=== PATIENT | female | born 1935 | race Caucasian/White ===

== ENCOUNTER → 2016-08-25 | Outpatient (CLI) | payer BC, OTHER ==
[~2016-08-25] MED LIST: CHOL1TAB2; CLON0.5T3 PO; METO-551 PO; METO25TA56 PO; MULT-190 PO; NRV/5 PO; PRLSR20 PO; RIVA1TAB4 PO; SIMV-151
[2016-08-25 13:14] LABS: ALT/SGPT 21 U/L (12-78); AST/SGOT 14 U/L (15-37); BLOOD UREA NITROGEN 12 mg/dl (7-18); CARBON DIOXIDE 29 mmol/L (21-32); CHLORIDE 102 mmol/L (98-107); CHOLESTEROL 155 mg/dl (0-200); CREATININE 0.91 mg/dl (0.60-1.20); GLUCOSE 84 mg/dl (70-99); POTASSIUM 4.2 mmol/L (3.5-5.1); SODIUM 139 mmol/L (136-145); TRIGLYCERIDES 167 mg/dl (0-150); VERY LOW DENSITY LIPOPROT CALC 33 mg/dl
[2016-08-25 13:17] LABS: ALB/GLOB RATIO 1.1 (0.9-2); ALKALINE PHOSPHATASE 71 U/L (45-117); CHOLESTEROL/HDL RATIO 2.8; HDL CHOLESTEROL 56 mg/dl; LDL CHOLESTEROL CALCULATED 66 mg/dl
[2016-08-25 13:21] LABS: CALCIUM 9.4 mg/dl (8.5-10.1)
== END | disposition home or self-care (01) ==
LOC: C.LABPVFM 11:06
PROVIDERS: ATTEND Family Medicine
DX: E78.5 Hyperlipidemia, unspecified (principal)

== ENCOUNTER 2022-08-05 04:32 | Inpatient (IN) ==
[2022-08-05 05:00] LABS: Basophils # (auto) 0.07 K/uL (0-0.2); Basophils % (auto) 1.4 %; Eosinophils # (auto) 0.08 K/uL (0-0.50); Eosinophils % (auto) 1.6 %; Hematocrit (blood only) 37.2 % (37.0-47.0); Hemoglobin 11.3 g/dl (12.0-16.0); Lymphocytes # (auto) 1.95 K/uL (1.2-3.4); Lymphocytes % (auto) 39.4 %; Mean Corpuscular Hemoglobin 26.4 pg (25.0-34.0); Mean Corpuscular Hgb Conc 30.4 g/dL (32.0-36.0); Mean Corpuscular Volume 86.9 fL (80.0-100.0); Mean Platelet Volume 10.3 fL (9.4-12.4); Monocytes # (auto) 0.55 K/uL (0.11-0.59); Monocytes % (auto) 11.1 %; Neutrophils % (auto) 46.5 %; Platelet Count 249 K/uL (130-400); RDW Coefficient of Variation 14.3 % (11.5-14.5); RDW Standard Deviation 45.5 fL (36.4-46.3); Red Blood Count 4.28 M/uL (4.20-5.40); White Blood Count 4.95 K/ul (4.8-10.8)
[2022-08-05 05:14] LABS: Albumin Globulin Ratio 1.2 (0.9-2); Albumin Level 4.1 gm/dl (3.4-5.0); BUN Creatinine Ratio 17.6 (10-20); Bilirubin,Total 0.7 mg/dl (0.2-1.0); Creatinine Clr Calc Pharmacy 56.9 ml/min; Est GFR (African American) 83.2 ml/min; Est GFR (Non-African American) 71.8 ml/min; Globulin 3.3 gm/dl (2.5-4.0); Total Protein 7.4 gm/dl (6.0-8.3)
[2022-08-05 05:26] LABS: INR 1.3 (0.9-1.1); Partial Thromboplastin Ratio 1.1; Partial Thromboplastin Time 32.2 Seconds (21.0-31.0); Prothrombin Time 14.5 Seconds (9.0-12.0)
[2022-08-05] MEDS ORDERED: FUROSEMIDE 40 MG/4 ML VIAL IV ONE ×2 (05:31→05:36)
--- NOTE | 2022-08-05 05:41 | Emergency Department Note ---
History of Present Illness General Chief complaint: Chest Pain Time Seen by Provider: 08/05/22 05:31 History of Present Illness Maximum Pain Intensity: 2 87-year-old female presents emergency department via EMS reportedly called EMS for chest pain that was substernal in nature with shortness of breath dyspnea on exertion. Patient has been experiencing this for the past few days. Patient was started few days ago on Lasix by her primary care physician. Patient has a history of A-fib she is currently on Xarelto. Patient states that she was having chest pressure that was nonradiating no associated nausea vomiting diaphoresis. There are no other mitigating or alleviating factors Home Medications Medication Instructions Recorded Confirmed Type cholecalciferol (vitamin D3) 25 1,000 units PO QAM 01/31/19 08/04/22 History mcg (1,000 unit) capsule potassium 99 mg tablet mg PO DAILY 05/29/19 08/04/22 History vitamins A,C,E-edno-updzyc 4,296 2 cap PO QAM 02/26/20 08/04/22 History mcg-226 mg-90 mg capsule (PreserVision AREDS) hydrochlorothiazide 25 mg tablet 25 mg PO QAM #90 tabs 12/24/21 08/04/22 Rx omeprazole 20 mg capsule,delayed 20 mg PO QAM #90 caps 12/24/21 08/04/22 Rx release simvastatin 20 mg tablet 20 mg PO QPM #90 tabs 01/05/22 08/04/22 Rx amlodipine 5 mg tablet 5 mg PO DAILY #90 tabs 02/13/22 08/04/22 Rx rivaroxaban 20 mg tablet (Xarelto) 20 mg PO QPM #90 tabs 03/31/22 08/04/22 Rx metoprolol tartrate 100 mg tablet 100 mg PO BID #180 tabs 05/06/22 08/04/22 Rx furosemide 20 mg tablet 20 mg PO DAILY #20 tabs 08/04/22 08/04/22 Rx Allergies Allergy/AdvReac Type Severity Reaction Status Date / Time codeine AdvReac Unknown STOMACH Verified 08/04/22 12:47 CRAMPS haloperidol AdvReac Unknown SEVERE Verified 08/04/22 12:47 LETHARGY Past Med/Surg History Medical History (Updated 08/05/22 @ 05:41 by Aj Peterson DO) Blepharospasm Head injury due to trauma 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) Syncope and collapse Tic disorder Surgical History H/O knee surgery History of reduction of open fracture Status post laser cataract surgery of both eyes Family History Daughter Breast cancer Denies family history of Ovarian cancer Prostate cancer Myocardial infarction Colorectal cancer Social History Smoking Status: Never smoker Second Hand Exposure: No; Do You Dip or Chew Tobacco: No; Hx Alcohol Use: Yes Alcohol type: wine Hx Substance Use: No Preferred Language: Cymro Communication Ability: Effective Visual Impairment: No Limitations Hearing Ability: Normal marital status: / Current Living Situation: Alone current occupational status: retired Feels Safe at Home: Yes Diet: regular caffeine: Yes (coffee ) Dental Care, Regularly: No Physical Activity Frequency: 1-2 Times per Week Seatbelt Use: always Sunscreen Use: Yes Review of Systems A total of 10 systems reviewed and were otherwise negative Cardiovascular: + chest pain and + dyspnea on exertion Physical Exam Vital Signs Vital Signs - 24 hr 08/05/22 04:37 08/05/22 04:46 08/05/22 05:51 Temperature 36.8 C Temperature Source Oral Pulse Rate 72 71 70 Respiratory Rate 16 12 Respiratory Effort / Characteristics Non-Labored Spontaneous Respiratory Depth Normal Respiratory Pattern Regular Blood Pressure 184/121 H Blood Pressure Mean 142 Pulse Oximetry 94 91 Oxygen Delivery Method Room Air Room Air Sepsis Recent Fever Within 48 Hours No Sepsis New/Unexplained Change in Mental Status No Sepsis Action Taken by Nursing No Action Required 08/05/22 05:01 08/05/22 05:30 Temperature Temperature Source Pulse Rate 67 70 Respiratory Rate 20 20 Respiratory Effort / Characteristics Respiratory Depth Respiratory Pattern Blood Pressure 178/90 H 188/88 H Blood Pressure Mean 119 121 Pulse Oximetry 91 96 Oxygen Delivery Method Sepsis Recent Fever Within 48 Hours Sepsis New/Unexplained Change in Mental Status Sepsis Action Taken by Nursing GENERAL: Patient is awake alert in no acute distress patient is resting comfortably and showing no signs of anxiety EYES: The conjunctivae are clear. The pupils are round and reactive. EARS, NOSE, MOUTH AND THROAT: The nose is without any evidence of any deformity. Mucous membranes are moist. Tongue is midline. NECK: The neck is nontender and supple. RESPIRATORY: Normal respiratory effort is noted there is no evidence of wheezing rhonchi or rales CARDIOVASCULAR: irregularly irregular rhythm noted there no murmurs rubs or gallops normal S1 normal S2. GASTROINTESTINAL: The abdomen is soft. Abdomen is nontender. BACK: No midline tenderness or or step-off noted range of motion in flexion e xtension as well as rotation no signs of muscle spasm noted MUSCULOSKELETAL/EXTREMITIES: There is no evidence of gross deformity full range of motion is noted in the hips and shoulders. SKIN: There is no obvious evidence of any rash. There are no petechiae, pallor or cyanosis noted. NEUROLOGIC: Patient is awake alert and oriented x3 strength is symmetric Course Reevaluation(s) Reevaluation #1: Patient was started on IV Lasix, aspirin, case was discussed with the [facility] for admission Time: 06:17 Consultations Consultation #1: Case discussed with the [facility] for admission Time: 06:17 Administered Medications Discontinued Medications Aspirin (Aspirin Chew 324 Mg) 324 mg PO NOW STA Stop: 08/05/22 06:12 Last Admin: 08/05/22 06:16 Dose: Not Given Documented By: MATTEO Furosemide (Furosemide 40 Mg/4 Ml Vial) 40 mg IV ONE ONE Stop: 08/05/22 05:32 Last Admin: 08/05/22 05:49 Dose: 40 mg Documented By: MATTEO Furosemide (Furosemide 40 Mg/4 Ml Vial) 40 mg IV ONE ONE Stop: 08/05/22 05:37 Last Admin: 08/05/22 05:47 Dose: Not Given Documented By: MATTEO Medical Decision Making Medical Records Attestation: I reviewed the patient's medical records. Home Medications Current Medication List: was personally reviewed by me Laboratory Data Attestation: I reviewed the patient's lab results. Labs interpreted by me are unremarkable except for an elevated BNP 08/05/22 04:40 08/05/22 04:40 Lab Results 08/05/22 08/05/22 08/05/22 Range/Units 04:40 04:40 04:40 WBC 4.95 (4.8-10.8) K/ul RBC 4.28 (4.20-5.40) M/uL Hgb 11.3 L (12.0-16.0) g/dl Hct 37.2 (37.0-47.0) % MCV 86.9 (80.0-100.0) fL MCH 26.4 (25.0-34.0) pg MCHC 30.4 L (32.0-36.0) g/dL RDW Std Deviation 45.5 (36.4-46.3) fL RDW Coeff of Mellisa 14.3 (11.5-14.5) % Plt Count 249 (130-400) K/uL MPV 10.3 (9.4-12.4) fL Immature Gran % (Auto) 0.0 % Neut % (Auto) 46.5 % Lymph % (Auto) 39.4 % Cherry % (Auto) 11.1 % Eos % (Auto) 1.6 % Baso % (Auto) 1.4 % Neut # (Auto) 2.30 (1.40-6.50) K/uL Lymph # (Auto) 1.95 (1.2-3.4) K/uL [place] # (Auto) 0.55 (0.11-0.59) K/uL Eos # (Auto) 0.08 (0-0.50) K/uL Baso # (Auto) 0.07 (0-0.2) K/uL Immature Gran # (Auto) 0.00 L (0.01-0.20) K/uL PT 14.5 H (9.0-12.0) Seconds INR 1.3 H (0.9-1.1) APTT 32.2 H (21.0-31.0) Seconds PTT Ratio 1.1 Sodium 140 (136-145) mmol/L Potassium 4.0 (3.5-5.1) mmol/L Chloride 105 (98-107) mmol/L Carbon Dioxide 28 (21-32) mmol/L Anion Gap 7 (3-11) BUN 13 (6-23) mg/dl Creatinine 0.74 (0.6-1.2) mg/dl Est Cr Clr Drug Dosing 56.9 ml/min Est GFR ( Amer) 83.2 ml/min Est GFR (Non-Af Amer) 71.8 ml/min BUN/Creatinine Ratio 17.6 (10-20) Glucose 98 (70-99(Fasting)) mg/dl Calcium 9.0 (8.6-10.3) mg/dl Total Bilirubin 0.7 (0.2-1.0) mg/dl AST 23 (13-39) U/L ALT 9 (7-52) U/L Alkaline Phosphatase 68 (34-104) U/L Troponin I High Sens 8.0 (0-14) pg/ml B-Natriuretic Peptide (0-100) pg/ml Total Protein 7.4 (6.0-8.3) gm/dl Albumin 4.1 (3.4-5.0) gm/dl Globulin 3.3 (2.5-4.0) gm/dl Albumin/Globulin Ratio 1.2 (0.9-2) 08/05/22 Range/Units 04:40 WBC (4.8-10.8) K/ul RBC (4.20-5.40) M/uL Hgb (12.0-16.0) g/dl Hct (37.0-47.0) % MCV (80.0-100.0) fL MCH (25.0-34.0) pg MCHC (32.0-36.0) g/dL RDW Std Deviation (36.4-46.3) fL RDW Coeff of Mellisa (11.5-14.5) % Plt Count (130-400) K/uL MPV (9.4-12.4) fL Immature Gran % (Auto) % Neut % (Auto) % Lymph % (Auto) % [place] % (Auto) % Eos % (Auto) % Baso % (Auto) % Neut # (Auto) (1.40-6.50) K/uL Lymph # (Auto) (1.2-3.4) K/uL [place] # (Auto) (0.11-0.59) K/uL Eos # (Auto) (0-0.50) K/uL Baso # (Auto) (0-0.2) K/uL Immature Gran # (Auto) (0.01-0.20) K/uL PT (9.0-12.0) Seconds INR (0.9-1.1) APTT (21.0-31.0) Seconds PTT Ratio Sodium (136-145) mmol/L Potassium (3.5-5.1) mmol/L Chloride (98-107) mmol/L Carbon Dioxide (21-32) mmol/L Anion Gap (3-11) BUN (6-23) mg/dl Creatinine (0.6-1.2) mg/dl Est Cr Clr Drug Dosing ml/min Est GFR ( Amer) ml/min Est GFR (Non-Af Amer) ml/min BUN/Creatinine Ratio (10-20) Glucose (70-99(Fasting)) mg/dl Calcium (8.6-10.3) mg/dl Total Bilirubin (0.2-1.0) mg/dl AST (13-39) U/L ALT (7-52) U/L Alkaline Phosphatase (34-104) U/L Troponin I High Sens (0-14) pg/ml B-Natriuretic Peptide 239 H (0-100) pg/ml Total Protein (6.0-8.3) gm/dl Albumin (3.4-5.0) gm/dl Globulin (2.5-4.0) gm/dl Albumin/Globulin Ratio (0.9-2) Imaging Data Attestation: I personally reviewed and interpreted this imaging study as follo ws: My Impression: Chest x-ray interpreted by me CHF ECG Data Attestation: I personally reviewed and interpreted this ECG as follows: Additional Comments: EKG interpreted by me atrial fibrillation rate of [address] segment elevation or depression normal axis Telemetry was ordered by me, interpreted as atrial fibrillation rate of 78 MDM Narrative Medical decision making differential diagnosis includes CHF, AMI, acute coronary syndrome, A-fib, anemia Plan is to check labs, EKG, chest x-ray, give IV Lasix, admit Prior external medical records were reviewed by me EMS run report was reviewed by me Patient will be admitted for chest pain and shortness of breath with CHF and stable A-fib Impression & Plan CHF (congestive heart failure), Chest pain Discharge Plan Visit Data Chief Complaint: Chest Pain ED Provider: Aj Peterson Discharge Problem: CHF (congestive heart failure), Chest pain Patient Disposition: Admitted As Inpatient Forms Stand Alone Forms: My [facility] Prescriptions Prescriptions: No Action hydrochlorothiazide 25 mg tablet 25 mg PO QAM Qty: 90 3RF Hold Instructions: switch to lasix omeprazole 20 mg capsule,delayed release(DR/EC) 20 mg PO QAM Qty: 90 3RF simvastatin 20 mg tablet 20 mg PO QPM Qty: 90 3RF amlodipine 5 mg tablet 5 mg PO DAILY Qty: 90 3RF Xarelto 20 mg tablet 20 mg PO QPM Qty: 90 3RF Rx Instructions: must administer with evening meal potassium 99 mg tablet PO DAILY furosemide 20 mg tablet 20 mg PO DAILY Qty: 20 0RF metoprolol tartrate 100 mg tablet 100 mg PO BID Qty: 180 3RF cholecalciferol (vitamin D3) 1,000 unit capsule 1,000 units PO QAM PreserVision AREDS [id number] capsule 2 cap PO QAM Referrals Referrals: Viola Alfaro CRNP [Primary Care Provider] -
[2022-08-05] MEDS ORDERED: ASPIRIN CHEW 324 MG PO STA (06:11)
--- NOTE | 2022-08-05 06:22 | History & Physical Report ---
Date of Service August 05, 2022 Assessment & Plan (1) CHF exacerbation: (2) Chest pain: (3) Insomnia: (4) Hypercholesterolemia: (5) Hypertension: (6) Atrial fibrillation: Plan CHF exacerbation/substernal chest pain/permanent atrial fibrillation/hypertension/lower extremity edema/weight gain- The patient will be admitted to telemetry for serial cardiac enzymes, serial EKG's, cardiac rhythm monitoring and a 2-D echocardiogram with Dopplers. Given a total of 80 mg of furosemide IV by the ED Adding Nitropaste 1 inch to anterior chest wall every 6 hours Continue metoprolol tartrate 100 mg p.o. twice daily, amlodipine 5 mg p.o. daily, Xarelto 20 mg daily. Given aspirin 324 mg by EMS in route Add aspirin 81 mg daily Hold furosemide 20 mg p.o. daily and HCTZ 25 mg p.o. daily Hyperlipidemia- Increase simvastatin from 20 to 40 mg daily Check a fasting lipid panel GERD- Change omeprazole to pantoprazole History of Present Illness Chief Complaint: The patient presents to the emergency department with report of gradually worsening shortness of breath over the past week, having recently been started on furosemide 20 mg daily. This morning at 3:00 AM she was woken by severe substernal chest pain, called EMS, received aspirin in route to the hospital, and underwent work-up and referred for evaluation for admission. She also reports an about 5-7 pound weight gain over the past few weeks Primary Care Provider: KAREN Arechiga The patient is an 87-year-old female with past medical history including history of falls, CHF, palpitations, osteopenia, peripheral edema, hypercholesterolemia, hypertension, tic disorder and permanent atrial fibrillation. She had been noticing shortness of breath and dyspnea on exertion over the past week, and had been seen in the outpatient setting by PCP and recently was started on furosemide. This morning she was awoken at 3:00 by severe substernal chest pain, called EMS, and was brought to the ED for assessment. Allergies Allergy/AdvReac Type Severity Reaction Status Date / Time codeine AdvReac Unknown STOMACH Verified 08/04/22 12:47 CRAMPS haloperidol AdvReac Unknown SEVERE Verified 08/04/22 12:47 LETHARGY Home Medications Medication Instructions Recorded Confirmed Type cholecalciferol (vitamin D3) 25 1,000 units PO QAM 01/31/19 08/04/22 History mcg (1,000 unit) capsule potassium 99 mg tablet mg PO DAILY 05/29/19 08/04/22 History vitamins A,C,B-brlw-szjxmw 4,296 2 cap PO QAM 02/26/20 08/04/22 History mcg-226 mg-90 mg capsule (PreserVision AREDS) hydrochlorothiazide 25 mg tablet 25 mg PO QAM #90 tabs 12/24/21 08/04/22 Rx omeprazole 20 mg capsule,delayed 20 mg PO QAM #90 caps 12/24/21 08/04/22 Rx release simvastatin 20 mg tablet 20 mg PO QPM #90 tabs 01/05/22 08/04/22 Rx amlodipine 5 mg tablet 5 mg PO DAILY #90 tabs 02/13/22 08/04/22 Rx rivaroxaban 20 mg tablet (Xarelto) 20 mg PO QPM #90 tabs 03/31/22 08/04/22 Rx metoprolol tartrate 100 mg tablet 100 mg PO BID #180 tabs 05/06/22 08/04/22 Rx furosemide 20 mg tablet 20 mg PO DAILY #20 tabs 08/04/22 08/04/22 Rx Past Med/Surg History Medical History (Updated 08/05/22 @ 05:41 by Aj Peterson DO) Blepharospasm Head injury due to trauma 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) Syncope and collapse Tic disorder Surgical History H/O knee surgery History of reduction of open fracture Status post laser cataract surgery of both eyes Family History Daughter Breast cancer Denies family history of Ovarian cancer Prostate cancer Myocardial infarction Colorectal cancer Social History Smoking Status: Never smoker Second Hand Exposure: No; Do You Dip or Chew Tobacco: No; Hx Alcohol Use: Yes Alcohol type: wine Hx Substance Use: No Preferred Language: Angolan Communication Ability: Effective Visual Impairment: No Limitations Hearing Ability: Normal marital status: / Current Living Situation: Alone current occupational status: retired Feels Safe at Home: Yes Diet: regular caffeine: Yes (coffee ) Dental Care, Regularly: No Physical Activity Frequency: 1-2 Times per Week Seatbelt Use: always Sunscreen Use: Yes Review of Systems Review of Systems: The patient denies cough,sore throat, fevers, chills, sweats, nausea, vomiting, diarrhea , constipation, abdominal pain, pelvic pain, blood in urine or stool, dysuria, urinary frequency or urgency, lightheadedness, dizziness, headache, memory loss, loss of consciousness, rash, abnormal bruising or bleeding, imbalance, focal or generalized weakness, numbness or tingling in arms or legs, generalized arthralgias or myalgias, back or neck pain, or night sweats. The review of systems is otherwise negative other than for that already noted above, and at least 10 systems have been reviewed. Physical Exam Physical Exam: The patient is awake, alert and oriented 3, well developed and well nourished, normocephalic and atraumatic, lying in bed and in no acute distress. HEENT--PERRL, EOMI, mucous membranes and oropharynx dry. Neck--supple. No JVD. No bruits. Thyroid normal, trachea midline, no adenopathy. Heart--irregularly irregular. No murmurs, rubs or gallops. Lungs--crackles at the bases bilaterally. No respiratory distress, no accessory muscle use. Abdomen--normal bowel sounds and soft. Nontender. Nondistended, no hernias or masses, no organomegaly. Extremities--no cyanosis or clubbing. Trace to 1+ bilateral pretibial pitting edema Dermatologic--normal skin turgor, normal color, no abnormal lymph nodes, no rash. Neurologic--cranial nerves II through XII grossly intact. Rheumatologic--normal range of motion. Psychiatric--normal affect. Results & Data Results & Data Vital Signs (Past 12 Hours) Vital Signs Temp Pulse Resp BP Pulse Ox O2 Del Method 08/05/22 05:30 70 20 188/88 H 96 08/05/22 05:01 67 20 178/90 H 91 08/05/22 05:51 70 12 91 Room Air 08/05/22 04:46 71 08/05/22 04:37 36.8 C 72 16 184/121 H 94 Room Air Laboratory Results Laboratory Results WBC 4.95 K/ul (4.8-10.8) 08/05/22 04:40 RBC 4.28 M/uL (4.20-5.40) 08/05/22 04:40 Hgb 11.3 g/dl (12.0-16.0) L 08/05/22 04:40 Hct 37.2 % (37.0-47.0) 08/05/22 04:40 MCV 86.9 fL (80.0-100.0) 08/05/22 04:40 MCH 26.4 pg (25.0-34.0) 08/05/22 04:40 MCHC 30.4 g/dL (32.0-36.0) L 08/05/22 04:40 RDW Std Deviation 45.5 fL (36.4-46.3) 08/05/22 04:40 RDW Coeff of Mellisa 14.3 % (11.5-14.5) 08/05/22 04:40 Plt Count 249 K/uL (130-400) 08/05/22 04:40 MPV 10.3 fL (9.4-12.4) 08/05/22 04:40 Immature Gran % (Auto) 0.0 % 08/05/22 04:40 Neut % (Auto) 46.5 % 08/05/22 04:40 Lymph % (Auto) 39.4 % 08/05/22 04:40 [place] % (Auto) 11.1 % 08/05/22 04:40 Eos % (Auto) 1.6 % 08/05/22 04:40 Baso % (Auto) 1.4 % 08/05/22 04:40 Neut # (Auto) 2.30 K/uL (1.40-6.50) 08/05/22 04:40 Lymph # (Auto) 1.95 K/uL (1.2-3.4) 08/05/22 04:40 [place] # (Auto) 0.55 K/uL (0.11-0.59) 08/05/22 04:40 Eos # (Auto) 0.08 K/uL (0-0.50) 08/05/22 04:40 Baso # (Auto) 0.07 K/uL (0-0.2) 08/05/22 04:40 Immature Gran # (Auto) 0.00 K/uL (0.01-0.20) L 08/05/22 04:40 PT 14.5 Seconds (9.0-12.0) H 08/05/22 04:40 INR 1.3 (0.9-1.1) H 08/05/22 04:40 APTT 32.2 Seconds (21.0-31.0) H 08/05/22 04:40 PTT Ratio 1.1 08/05/22 04:40 Sodium 140 mmol/L (136-145) 08/05/22 04:40 Potassium 4.0 mmol/L (3.5-5.1) 08/05/22 04:40 Chloride 105 mmol/L (98-107) 08/05/22 04:40 Carbon Dioxide 28 mmol/L (21-32) 08/05/22 04:40 Anion Gap 7 (3-11) 08/05/22 04:40 BUN 13 mg/dl (6-23) 08/05/22 04:40 Creatinine 0.74 mg/dl (0.6-1.2) 08/05/22 04:40 Est Cr Clr Drug Dosing 56.9 ml/min 08/05/22 04:40 Est GFR ( Amer) 83.2 ml/min 08/05/22 04:40 Est GFR (Non-Af Amer) 71.8 ml/min 08/05/22 04:40 BUN/Creatinine Ratio 17.6 (10-20) 08/05/22 04:40 Glucose 98 mg/dl (70-99(Fasting)) 08/05/22 04:40 Calcium 9.0 mg/dl (8.6-10.3) 08/05/22 04:40 Total Bilirubin 0.7 mg/dl (0.2-1.0) 08/05/22 04:40 AST 23 U/L (13-39) 08/05/22 04:40 ALT 9 U/L (7-52) 08/05/22 04:40 Alkaline Phosphatase 68 U/L (34-104) 08/05/22 04:40 Troponin I High Sens 8.0 pg/ml (0-14) 08/05/22 04:40 B-Natriuretic Peptide 239 pg/ml (0-100) H 08/05/22 04:40 Total Protein 7.4 gm/dl (6.0-8.3) 08/05/22 04:40 Albumin 4.1 gm/dl (3.4-5.0) 08/05/22 04:40 Globulin 3.3 gm/dl (2.5-4.0) 08/05/22 04:40 Albumin/Globulin Ratio 1.2 (0.9-2) 08/05/22 04:40 SARS-CoV-2, RNA, NAAT NEGATIVE (NEGATIVE) 08/05/22 05:50 Code Status & VTE Plan Code Status Full code VTE Prophylaxis Plan VTE Prophylaxis will be ordered: Yes PG Care Time/CCT Total # of Minutes Spent Total Time Spent with Patient: Total time spent is greater than 50% in coordination of care (as documented) at patient's floor/unit and/or counseling patient: Coding Level of Care Code 45267 INT INP/OBS CARE 3/75MIN Diagnoses CHF exacerbation I50.9 Chest pain R07.9 Insomnia G47.00 Hypercholesterolemia E78.00 Hypertension I10 Atrial fibrillation I48.91
--- NOTE | 2022-08-05 07:32 | XRay Report ---
SINGLE VIEW CHEST CLINICAL HISTORY: Atypical chest pain. FINDINGS: An AP, portable, upright chest radiograph is compared to study dated 05/01/2022 and correlate d with chest CT dated 01/19/2014. The heart is enlarged noting atherosclerotic calcification of the t horacic aorta. There is pulmonary vascular congestion. There are bibasilar airspace opacities. No lar ge pleural effusion or pneumothorax is seen. The skeletal structures are osteopenic. The bony thorax is grossly intact. Arthritic change is seen in the shoulders. IMPRESSION: 1. Cardiomegaly with pulmonary vascular congestion. 2. Bibasilar opacities could represent atelectasis, mild pulmonary edema, and/or an infectious/inflam matory pneumonitis. Clinical correlation will be required and radiographic follow-up to resolution is recommended.. ACT 112: Negative or not required by law. Electronically signed by: Royer Jo M.D. 08/05/2022 7:30 AM
[2022-08-05] MEDS ORDERED: ONDANSETRON INJ 2 MG/ML 2 ML VIAL IV PRN (08:14)
[2022-08-05] MEDS ORDERED: ACETAMINOPHEN 325 MG TAB PO PRN (08:14)
[2022-08-05] MEDS ORDERED: NITROGLYCERIN SL 0.4 MG/TAB TAB SL PRN (08:14)
[2022-08-05] MEDS: amLODIPine BESYLATE 5 MG TAB PO SCH (09:17)
[2022-08-05] MEDS: CHOLECALCIFEROL 1,000 UNITS 25 MCG TAB PO SCH (09:17)
[2022-08-05] MEDS: NITROGLYCERIN 2% OINTMENT 30GM TUBE EXT SCH ×2 (09:17→15:52)
[2022-08-05] MEDS: PANTOprazole 40 MG TAB PO SCH (09:17)
[2022-08-05] MEDS: CEROVITE ADV FORMULA TAB PO SCH (09:18)
[2022-08-05] MEDS: METOPROLOL TARTRATE 100 MG TAB PO SCH ×2 (09:18→20:14)
--- NOTE | 2022-08-05 13:13 | Cardiology Consultation ---
Date of Consultation August 05, 2022 Assessment & Plan (1) Acute heart failure with preserved ejection fraction (HFpEF): (2) Chest pain: (3) Atrial fibrillation, permanent: (4) Mitral regurgitation: (5) Pulmonary hypertension: Plan ASSESSMENT/PLAN: 1. Acute heart failure with preserved EF: Appears hypervolemic. Continue Lasix. Strict I's and O's (discussed with nursing staff). Low-sodium diet, less than 2000 mg daily. Daily weights. Continue diuresis with a goal of 1 to 2 L negative per day. Monitor renal function and electrolytes closely. Heart failure program recommended. 2. Chest pain: Atypical and appears to have been long lasting for a few hours, with negative high-sensitivity troponin levels. Etiology uncertain but may have been related to heart failure or noncardiac etiology. No significant ST/T wave changes on ECG. 3. Permanent atrial fibrillation: Heart rate well controlled. Continue beta- fabio for rate control strategy. Continue anticoagulation for stroke risk reduction. 4. Mitral and tricuspid regurgitation: Nonsevere. Monitor over time as an outpatient with Dr. Villegas. 5. Pulmonary hypertension: Could be related to hypervolemia. Pulmonary embolism less likely given therapeutic anticoagulation therapy and she reports that she has been compliant. Repeat imaging in the future for surveillance purposes. 6. Disposition: Cardiology will continue to follow. Follow up with Dr. Villegas on discharge. HF program referral. Pt care communicated with Dr. Jha of the primary hospitalist service. Thank you for allowing me to participate in the care of your patient. Please call for any other questions or concerns. Sincerely, Dheeraj Vinson M.D. History of Present Illness Reason for Consultation: Chest pain and CHF Requesting Physician: Wandy Jha DO Attending Physician: Wandy Jha DO History of Present Illness Mrs. Barry is a very pleasant 87-year-old female with history significant for permanent atrial fibrillation, hypertension, dyslipidemia, and mitral regurgitation. Her primary orthopedic shoe maker is Dr. Villegas. She was admitted on 08/05/2022 after presenting with chest pain and dyspnea on exertion. She had been noticing worsening dyspnea on exertion and 8 pound weight gain over the past couple of weeks. She went to see her PCP last week and was prescribed Lasix 20 mg daily which offered very little improvement and perhaps 1 to 2 pound weight loss. She has not noted any swelling in her legs and denies orthopnea. At approximately 3 AM this morning, she developed a left lower chest discomfort described as a "shooting pain." There was no radiation but the pain persisted for hours. She called EMS and received nitroglycerin which improved her pain but it did not resolve completely until after nitroglycerin paste was applied here. She is currently chest pain-free. She denies syncope, near syncope, palpitations, melena, hematochezia, hematuria, or other bleeding. She maintains mostly a low-sodium diet. Here she has been receiving intravenous diuretics and has had significantly increased urine output, however urine output has not been collected and measured. Her breathing has improved. Review of systems: As above. Review of systems otherwise negative/unremarkable. Family history: No known premature CAD. Social history: She denies tobacco. Rare alcohol. Lives alone. . 4 children, the closest lives in [facility]. 6 grandchildren. 7 great-grandchildren. She was unaccompanied. Allergies Allergy/AdvReac Type Severity Reaction Status Date / Time codeine AdvReac Unknown STOMACH Verified 08/04/22 12:47 CRAMPS haloperidol AdvReac Unknown SEVERE Verified 08/04/22 12:47 LETHARGY Home Medications Medication Instructions Recorded Confirmed Type cholecalciferol (vitamin D3) 25 1,000 units PO QAM 01/31/19 08/04/22 History mcg (1,000 unit) capsule potassium 99 mg tablet mg PO DAILY 05/29/19 08/04/22 History vitamins A,C,V-dxez-hugnqt 4,296 2 cap PO QAM 02/26/20 08/04/22 History mcg-226 mg-90 mg capsule (PreserVision AREDS) hydrochlorothiazide 25 mg tablet 25 mg PO QAM #90 tabs 12/24/21 08/04/22 Rx omeprazole 20 mg capsule,delayed 20 mg PO QAM #90 caps 12/24/21 08/04/22 Rx release simvastatin 20 mg tablet 20 mg PO QPM #90 tabs 01/05/22 08/04/22 Rx amlodipine 5 mg tablet 5 mg PO DAILY #90 tabs 02/13/22 08/04/22 Rx rivaroxaban 20 mg tablet (Xarelto) 20 mg PO QPM #90 tabs 03/31/22 08/04/22 Rx metoprolol tartrate 100 mg tablet 100 mg PO BID #180 tabs 05/06/22 08/04/22 Rx furosemide 20 mg tablet 20 mg PO DAILY #20 tabs 08/04/22 08/04/22 Rx Patient History Medical History (Updated 08/05/22 @ 13:47 by Yuri Vinson MD) Atrial fibrillation, permanent Blepharospasm Head injury due to trauma Hypercholesterolemia Hypertension Mitral regurgitation 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) Syncope and collapse Tic disorder Surgical History H/O knee surgery History of reduction of open fracture Status post laser cataract surgery of both eyes Family History Daughter Breast cancer Denies family history of Ovarian cancer Prostate cancer Myocardial infarction Colorectal cancer Social History Smoking Status: Never smoker Second Hand Exposure: No; Do You Dip or Chew Tobacco: No; Hx Alcohol Use: No Hx Substance Use: No Preferred Language: Greenlandic Communication Ability: Effective Visual Impairment: No Limitations Hearing Ability: Normal 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 Alert and oriented. HEENT: Anicteric sclera. Neck: Mild JVD. Hepatojugular reflux noted. No bruits. Normal carotid upstrokes bilaterally. Cardiac: No ventricular heave. Irregularly irregular. Normal rate. Normal S1-S2. No murmurs, rubs, or gallops. Pulmonary: Basilar Rales. Abdomen: Soft, nontender, nondistended, with normoactive bowel sounds. No bruits noted. Extremities: 2+ radial pulses bilaterally. 2+ posterior tibialis pulses bilaterally. No edema or cyanosis. Psychiatric: Affect appears appropriate. Results & Data Vital Signs (Past 12 Hours) Vital Signs Temp Pulse Pulse Resp BP BP Pulse Ox 08/05/22 11:12 36.8 C 71 18 144/78 H 92 08/05/22 08:33 66 08/05/22 08:20 08/05/22 08:20 36.5 C 78 16 183/78 H 98 08/05/22 06:30 67 16 152/117 H 94 08/05/22 05:30 70 20 188/88 H 96 08/05/22 05:01 67 20 178/90 H 91 08/05/22 05:51 70 12 91 08/05/22 04:46 71 08/05/22 04:37 36.8 C 72 16 184/121 H 94 O2 Del Method 08/05/22 11:12 Room Air 08/05/22 08:33 08/05/22 08:20 Room Air 08/05/22 08:20 Room Air 08/05/22 06:30 08/05/22 05:30 08/05/22 05:01 08/05/22 05:51 Room Air 08/05/22 04:46 08/05/22 04:37 Room Air Intake & Output 08/03/22 08/04/22 08/05/22 08/06/22 06:59 06:59 06:59 06:59 Weight 189 lb 9.561 oz 175 lb 4.28 oz Laboratory Results Laboratory Results - last 24 hr 08/05/22 08/05/22 08/05/22 04:40 04:40 04:40 WBC 4.95 RBC 4.28 Hgb 11.3 L Hct 37.2 MCV 86.9 MCH 26.4 MCHC 30.4 L RDW Std Deviation 45.5 RDW Coeff of Mellisa 14.3 Plt Count 249 MPV 10.3 Immature Gran % (Auto) 0.0 Neut % (Auto) 46.5 Lymph % (Auto) 39.4 Scott % (Auto) 11.1 Eos % (Auto) 1.6 Baso % (Auto) 1.4 Neut # (Auto) 2.30 Lymph # (Auto) 1.95 Scott # (Auto) 0.55 Eos # (Auto) 0.08 Baso # (Auto) 0.07 Immature Gran # (Auto) 0.00 L PT 14.5 H INR 1.3 H APTT 32.2 H PTT Ratio 1.1 Sodium 140 Potassium 4.0 Chloride 105 Carbon Dioxide 28 Anion Gap 7 BUN 13 Creatinine 0.74 Est Cr Clr Drug Dosing 56.9 Est GFR ( Amer) 83.2 Est GFR (Non-Af Amer) 71.8 BUN/Creatinine Ratio 17.6 Glucose 98 Calcium 9.0 Magnesium 2.0 Total Bilirubin 0.7 AST 23 ALT 9 Alkaline Phosphatase 68 Troponin I High Sens 8.0 B-Natriuretic Peptide Total Protein 7.4 Albumin 4.1 Globulin 3.3 Albumin/Globulin Ratio 1.2 SARS-CoV-2, RNA, NAAT 08/05/22 08/05/22 08/05/22 04:40 05:50 08:41 WBC RBC Hgb Hct MCV MCH MCHC RDW Std Deviation RDW Coeff of Mellisa Plt Count MPV Immature Gran % (Auto) Neut % (Auto) Lymph % (Auto) Scott % (Auto) Eos % (Auto) Baso % (Auto) Neut # (Auto) Lymph # (Auto) Scott # (Auto) Eos # (Auto) Baso # (Auto) Immature Gran # (Auto) PT INR APTT PTT Ratio Sodium Potassium Chloride Carbon Dioxide Anion Gap BUN Creatinine Est Cr Clr Drug Dosing Est GFR ( Amer) Est GFR (Non-Af Amer) BUN/Creatinine Ratio Glucose Calcium Magnesium Total Bilirubin AST ALT Alkaline Phosphatase Troponin I High Sens 7.9 B-Natriuretic Peptide 239 H Total Protein Albumin Globulin Albumin/Globulin Ratio SARS-CoV-2, RNA, NAAT NEGATIVE Diagnostic Findings On 08/05/2022, chart and labs reviewed. Labs notable for stable renal function, mild anemia, elevated BNP, and normal high-sensitivity troponin x2. ECG personally reviewed 08/05/2022 at 4:38 AM: A-fib 83 bpm. Echo 08/05/2022: 1. Normal left ventricular size and systolic function. EF 55-60%. No regional wall motion abnormalities. Mild to moderate concentric left ventricular hypertrophy. 2. Mildly dilated right ventricle with mildly reduced systolic function. 3. Severe biatrial dilation. 4. Mild to moderate mitral regurgitation. 5. Moderate tricuspid regurgitation. 6. Moderate pulmonary hypertension; RVSP 56 mmHg. 7. Compared to prior study on 09/24/2012, RVSP is now moderately elevated. History and physical report reviewed. Chest x-ray image personally reviewed from 08/05/2022: No pleural effusion. Prominent pulmonary vascular congestion. Radiology reports bibasilar opacities which could represent atelectasis, pulmonary edema, and/or infectious/inflammatory pneumonitis. Medications Administered Current Inpatient Medications Acetaminophen (Acetaminophen 325 Mg Tab) 650 mg PO Q4H PRN PRN Reason: Pain or Fever Stop: 09/04/22 08:13 Amlodipine Besylate (Amlodipine Besylate 5 Mg Tab) 5 mg PO DAILY AKILA Stop: 09/04/22 08:59 Last Admin: 08/05/22 09:17 Dose: 5 mg Aspirin (Aspirin 81 Mg Ectab) 81 mg PO QAM AKILA Stop: 09/05/22 08:59 Furosemide (Furosemide 40 Mg/4 Ml Vial) 40 mg IV QAM [facility] Stop: 09/05/22 08:59 Metoprolol Tartrate (Metoprolol Tartrate 100 Mg Tab) 100 mg PO BID AKILA Stop: 09/04/22 08:59 Last Admin: 08/05/22 09:18 Dose: 100 mg Multivitamins/Minerals (Cerovite Adv Formula Tab) 2 tab PO QAM [facility] Stop: 09/04/22 08:59 Last Admin: 08/05/22 09:18 Dose: 2 tab Nitroglycerin (Nitroglycerin 2% Ointment 30gm Tube) 1 inch EXT Q6H AKILA Stop: 09/04/22 08:29 Last Admin: 08/05/22 09:17 Dose: 1 inch Nitroglycerin (Nitroglycerin Sl 0.4 Mg/Tab Tab) 0.4 mg SL PRN PRN PRN Reason: Chest Pain Stop: 09/04/22 08:13 Ondansetron HCl (Ondansetron Inj 2 Mg/Ml 2 Ml Vial) 4 mg IV Q6H PRN PRN Reason: Nausea Stop: 09/04/22 08:13 Pantoprazole Sodium (Pantoprazole 40 Mg Tab) 40 mg PO QAM [facility] Stop: 09/04/22 08:59 Last Admin: 08/05/22 09:17 Dose: 40 mg Rivaroxaban (Rivaroxaban 20 Mg Tab) 20 mg PO QDD [facility] Stop: 09/04/22 16:29 Simvastatin (Simvastatin 40 Mg Tab) 40 mg PO QPM [facility] Stop: 09/04/22 20:59 Vitamin D (Cholecalciferol 1,000 Units 25 Mcg Tab) 1,000 units PO QAM [facility] Stop: 09/04/22 08:59 Last Admin: 08/05/22 09:17 Dose: 1,000 units PG Care Time/CCT Total # of Minutes Spent Total Time Spent with Patient: Total time spent is greater than 50% in coordination of care (as documented) at patient's floor/unit and/or counseling patient: Coding Level of Care Code 44371 INT INP/OBS CARE 3/75MIN Diagnoses Acute heart failure with preserved ejection fraction (HFpEF) I50.31 Chest pain R07.9 Atrial fibrillation, permanent I48.21 Mitral regurgitation I34.0 Pulmonary hypertension I27.20
--- NOTE | 2022-08-05 13:47 | XCELERA ---
[id number]
--- NOTE | 2022-08-05 15:57 | Hospitalist Progress Note ---
Date of Service August 05, 2022 Assessment & Plan (1) Acute heart failure with preserved ejection fraction (HFpEF): Plan: Patient was evaluated by cardiology appears hypervolemia continue Lasix strict Is & Os, daily weights continue low sodium diet (<2gm daily) continue to diurese with a goal of 1-2 L negative per day cardiology recommended heart failure program BMP in AM (2) Chest pain: Plan: - Resolved Troponins negative nitropaste discontinued (3) Hypercholesterolemia: Plan: chronic and stable continue simvastatin (4) Hypertension: Plan: chronic and stable BP today 133/72 continue amlodipine and metoprolol HCTZ held diuresing with Lasix 40mg IV daily (see above) (5) Atrial fibrillation: Plan: Permanent Continue beta-fabio for rate control Continue Rivaroxaban Admission and Anticipated Discharge Date Admission Date: August 05, 2022 Supervising Physician Co-Signing Physician Notes PA Supervision Note: I did not personally see or examine the patient. I verified all alcantar points and agree with KRYSTAL Quinones with the following exceptions and/or additions: Patient admitted for chest pain rule out as well as CHF exacerbation. Heart failure with preserved ejection fraction, continue Lasix 40 mg IV daily with monitoring of renal function. Recommend CHF program referral on discharge. Negative high- sensitivity troponins with atypical chest pain, which has resolved by the time of midlevel and cardiology evaluation. Nitropaste discontinued. Noted to have hypertension on admission, continue amlodipine and metoprolol, with IV diuresis with Lasix. May need titration of medications per primary care provider if hypertensive on discharge. Continue rivaroxaban and metoprolol for atrial fibrillation. Anticipate discharge home in the coming days as patient's fluid status improves and chest pain has resolved. Subjective Patient seen this afternoon in rounds. She states currently she feels great and has no further chest or abdominal pain. She had an echo and was evaluated by c ardiology who recommended to continue to diurese. Strict Is & Os, low sodium diet, daily weights and recommended a 1-2 L negative daily. Continue to monitor electrolytes carefully. Echo - EF 55-60%, No RWMA, Mitral regurg and Tricuspid regurg nonsevere (recommended monitoring over time with Dr Villegas per cardiology), RVSP moderately elevated Review of Systems Review of Systems: The patient denies cough,sore throat, fevers, chills, sweats, nausea, vomiting, diarrhea , constipation, abdominal pain, pelvic pain, blood in urine or stool, dysuria, urinary frequency or urgency, lightheadedness, dizziness, headache, memory loss, loss of consciousness, rash, abnormal bruising or bleeding, imbalance, focal or generalized weakness, numbness or tingling in arms or legs, generalized arthralgias or myalgias, back or neck pain, or night sweats. The review of systems is otherwise negative other than for that already noted above, and at least 10 systems have been reviewed. Physical Exam Constitutional: WD/WN, vitals as above Neck: trachea midline, no thyromegaly Respiratory: normal respiratory effort and able to speak in complete sentences; no respiratory distress and does not use accessory muscles Auscultation: + crackles; no rales, no rhonchi and no wheezes Cardiovascular: Rate/Rhythm: + irregularly irregular Heart Sounds: no murmur Extremities: normal capillary refill; no calf tenderness and no edema Gastrointestinal (Abdomen): normal bowel sounds, soft, nontender, no hepatosplenomegaly Psychiatric: A+Ox3, euthymic affect Results & Data Results & Data Vital Signs (Past 12 Hours) Vital Signs Temp Pulse Pulse Resp BP BP Pulse Ox 08/05/22 15:25 37.3 C 58 L 18 133/72 94 08/05/22 11:12 36.8 C 71 18 144/78 H 92 08/05/22 08:33 66 08/05/22 08:20 08/05/22 08:20 36.5 C 78 16 183/78 H 98 08/05/22 06:30 67 16 152/117 H 94 08/05/22 05:30 70 20 188/88 H 96 08/05/22 05:01 67 20 178/90 H 91 08/05/22 05:51 70 12 91 08/05/22 04:46 71 08/05/22 04:37 36.8 C 72 16 184/121 H 94 O2 Del Method 08/05/22 15:25 Room Air 08/05/22 11:12 Room Air 08/05/22 08:33 08/05/22 08:20 Room Air 08/05/22 08:20 Room Air 08/05/22 06:30 08/05/22 05:30 08/05/22 05:01 08/05/22 05:51 Room Air 05/10/23 04:46 08/05/22 04:37 Room Air Laboratory Results Abnormal lab results 08/05/22 08/05/22 08/05/22 Range/Units 04:40 04:40 04:40 Hgb 11.3 L (12.0-16.0) g/dl MCHC 30.4 L (32.0-36.0) g/dL Immature Gran # (Auto) 0.00 L (0.01-0.20) K/uL PT 14.5 H (9.0-12.0) Seconds INR 1.3 H (0.9-1.1) APTT 32.2 H (21.0-31.0) Seconds B-Natriuretic Peptide 239 H (0-100) pg/ml Diagnostic Findings Chest X-Ray 08/05/22 04:41 SINGLE VIEW CHEST CLINICAL HISTORY: Atypical chest pain. FINDINGS: An AP, portable, upright chest radiograph is compared to study dated 05/01/2022 and correlated with chest CT dated 01/19/2014. The heart is enlarged noting atherosclerotic calcification of the thoracic aorta. There is pulmonary vascular congestion. There are bibasilar airspace opacities. No large pleural effusion or pneumothorax is seen. The skeletal structures are osteopenic. The bony thorax is grossly intact. Arthritic change is seen in the shoulders. IMPRESSION: 1. Cardiomegaly with pulmonary vascular congestion. 2. Bibasilar opacities could represent atelectasis, mild pulmonary edema, and/or an infectious/inflammatory pneumonitis. Clinical correlation will be required and radiographic follow-up to resolution is recommended.. ACT 112: Negative or not required by law. Electronically signed by: Royer Jo M.D. 08/05/2022 7:30 AM PG Care Time/CCT Total # of Minutes Spent Total Time Spent with Patient: Total time spent is greater than 50% in coordination of care (as documented) at patient's floor/unit and/or counseling patient: Coding Level of Care Code None Diagnoses Acute heart failure with preserved ejection fraction (HFpEF) I50.31 Chest pain R07.9 Hypercholesterolemia E78.00 Hypertension I10 Atrial fibrillation I48.91
[2022-08-05] MEDS: RIVAROXABAN 20 MG TAB PO SCH (16:55)
--- NOTE | 2022-08-05 19:01 | History & Physical Report ---
Date of Service August 05, 2022 Assessment & Plan Admission and Anticipated Discharge Date Admission Date: August 05, 2022 History of Present Illness Primary Care Provider: KAREN Arechiga Allergies Allergy/AdvReac Type Severity Reaction Status Date / Time codeine AdvReac Unknown STOMACH Verified 08/04/22 12:47 CRAMPS haloperidol AdvReac Unknown SEVERE Verified 08/04/22 12:47 LETHARGY Home Medications Medication Instructions Recorded Confirmed Type cholecalciferol (vitamin D3) 25 1,000 units PO QAM 01/31/19 08/04/22 History mcg (1,000 unit) capsule potassium 99 mg tablet mg PO DAILY 05/29/19 08/04/22 History vitamins A,C,B-plee-mgqwnd 4,296 2 cap PO QAM 02/26/20 08/04/22 History mcg-226 mg-90 mg capsule (PreserVision AREDS) hydrochlorothiazide 25 mg tablet 25 mg PO QAM #90 tabs 12/24/21 08/04/22 Rx omeprazole 20 mg capsule,delayed 20 mg PO QAM #90 caps 12/24/21 08/04/22 Rx release simvastatin 20 mg tablet 20 mg PO QPM #90 tabs 01/05/22 08/04/22 Rx amlodipine 5 mg tablet 5 mg PO DAILY #90 tabs 02/13/22 08/04/22 Rx rivaroxaban 20 mg tablet (Xarelto) 20 mg PO QPM #90 tabs 03/31/22 08/04/22 Rx metoprolol tartrate 100 mg tablet 100 mg PO BID #180 tabs 05/06/22 08/04/22 Rx furosemide 20 mg tablet 20 mg PO DAILY #20 tabs 08/04/22 08/04/22 Rx Past Med/Surg History Medical History (Updated 08/05/22 @ 13:47 by Yuri Vnison MD) Atrial fibrillation, permanent Blepharospasm Head injury due to trauma Hypercholesterolemia Hypertension Mitral regurgitation 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) Syncope and collapse Tic disorder Surgical History H/O knee surgery History of reduction of open fracture Status post laser cataract surgery of both eyes Family History Daughter Breast cancer Denies family history of Ovarian cancer Prostate cancer Myocardial infarction Colorectal cancer Social History Smoking Status: Never smoker Second Hand Exposure: No; Do You Dip or Chew Tobacco: No; Hx Alcohol Use: No Hx Substance Use: No Preferred Language: Hungarian Communication Ability: Effective Visual Impairment: No Limitations Hearing Ability: Normal 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 Beliefs That Will Affect Care: None marital status: / Current Living Situation: Alone current occupational status: retired Feels Safe at Home: Yes Diet: regular caffeine: Yes (coffee ) Dental Care, Regularly: No Physical Activity Frequency: 1-2 Times per Week Seatbelt Use: always Sunscreen Use: Yes Results & Data Results & Data Vital Signs (Past 12 Hours) Vital Signs Temp Pulse Pulse Resp BP Pulse Ox O2 Del Method 08/05/22 15:25 37.3 C 58 L 18 133/72 94 Room Air 08/05/22 11:12 36.8 C 71 18 144/78 H 92 Room Air 08/05/22 08:33 66 08/05/22 08:20 Room Air 08/05/22 08:20 36.5 C 78 16 183/78 H 98 Room Air Code Status & VTE Plan VTE Prophylaxis Plan VTE Prophylaxis will be ordered: Yes PG Care Time/CCT Total # of Minutes Spent Total Time Spent with Patient: Total time spent is greater than 50% in coordination of care (as documented) at patient's floor/unit and/or counseling patient: Coding Diagnoses
[2022-08-05] MEDS ORDERED: SIMVASTATIN 40 MG TAB PO SCH (21:00)
[2022-08-06 03:00] LABS: Basophils # (auto) 0.07 K/uL (0-0.2); Basophils % (auto) 1.5 %; Eosinophils # (auto) 0.09 K/uL (0-0.50); Hematocrit (blood only) 32.7 % (37.0-47.0); Hemoglobin 10.1 g/dl (12.0-16.0); Immature Granulocytes # (auto) 0.01 K/uL (0.01-0.20); Immature Granulocytes % (auto) 0.2 %; Lymphocytes % (auto) 37.3 %; Mean Corpuscular Hemoglobin 26.6 pg (25.0-34.0); Mean Corpuscular Hgb Conc 30.9 g/dL (32.0-36.0); Mean Corpuscular Volume 86.1 fL (80.0-100.0); Mean Platelet Volume 10.1 fL (9.4-12.4); Neutrophils # (auto) 2.19 K/uL (1.40-6.50); Platelet Count 199 K/uL (130-400); RDW Coefficient of Variation 14.3 % (11.5-14.5); RDW Standard Deviation 44.8 fL (36.4-46.3); White Blood Count 4.56 K/ul (4.8-10.8)
[2022-08-06 03:10] LABS: Albumin Level 3.7 gm/dl (3.4-5.0); Calcium 8.9 mg/dl (8.6-10.3); Potassium 3.6 mmol/L (3.5-5.1)
[2022-08-06 03:16] LABS: BUN Creatinine Ratio 19.8 (10-20); Creatinine Clr Calc Pharmacy 44.6 ml/min; Est GFR (African American) 64.8 ml/min; Est GFR (Non-African American) 55.9 ml/min
[2022-08-06 03:28] LABS: INR 1.6 (0.9-1.1); Partial Thromboplastin Ratio 1.3; Partial Thromboplastin Time 37.1 Seconds (21.0-31.0); Prothrombin Time 16.7 Seconds (9.0-12.0)
--- NOTE | 2022-08-06 05:25 | Electrocardiogram Report ---
Test Reason : Blood Pressure : / mmHG Vent. Rate : 083 BPM Atrial Rate : 000 BPM P-R Int : 000 ms QRS Dur : 086 ms QT Int : 386 ms P-R-T Axes : 000 -08 084 degrees QTc Int : 453 ms Atrial fibrillation Abnormal ECG When compared with ECG of 16-MAY-2019 16:15, Vent. rate has decreased BY 42 BPM T wave inversion no longer evident in Inferior leads Confirmed by Yuri Vinson ([id number]) on 08/06/2022 5:24:34 AM Referred By: REFERRED SELF Confirmed By:Yuri Vinson
[2022-08-06] MEDS: METOPROLOL TARTRATE 100 MG TAB PO SCH (08:24)
[2022-08-06] MEDS: CHOLECALCIFEROL 1,000 UNITS 25 MCG TAB PO SCH (08:24)
[2022-08-06] MEDS: CEROVITE ADV FORMULA TAB PO SCH (08:24)
[2022-08-06] MEDS: amLODIPine BESYLATE 5 MG TAB PO SCH (08:24)
[2022-08-06] MEDS: PANTOprazole 40 MG TAB PO SCH (08:24)
[2022-08-06] MEDS ORDERED: ASPIRIN 81 MG ECTAB PO SCH (09:00)
[2022-08-06] MEDS ORDERED: FUROSEMIDE 40 MG/4 ML VIAL IV SCH (09:00)
--- NOTE | 2022-08-06 13:32 | Cardiology Progress Note ---
Date of Service August 06, 2022 Assessment & Plan (1) Acute heart failure with preserved ejection fraction (HFpEF): (2) Chest pain: (3) Atrial fibrillation, permanent: (4) Mitral regurgitation: (5) Pulmonary hypertension: (6) Anemia: Plan ASSESSMENT/PLAN: 1. Acute heart failure with preserved EF: She appears euvolemic. I's and O's have been incomplete. She would like to be discharged home. She plans on leaving the state this weekend. Continue Lasix 20 mg p.o. once daily but can use an additional 20 mg daily as needed weight gain, shortness of breath, or edema. Considered 40 mg once daily but given that she may have difficulty having labs done while away, lower dose for now. Close follow-up in the heart failure program (plans on virtual visit within 1 week). Low-sodium diet, less than 2000 mg daily. Daily weights. 2. Chest pain: Atypical and appears to have been long lasting for a few hours, with negative high-sensitivity troponin levels. Etiology uncertain but may have been related to heart failure or noncardiac etiology. No significant ST/T wave changes on ECG. 3. Permanent atrial fibrillation: Heart rate well controlled. Continue beta- fabio for rate control strategy. Continue anticoagulation for stroke risk reduction. Monitor CBC and renal function periodically. 4. Mitral and tricuspid regurgitation: Nonsevere. Monitor over time as an outpatient with Dr. Villegas. 5. Pulmonary hypertension: Could be related to hypervolemia. Pulmonary embolism less likely given therapeutic anticoagulation therapy and she reports that she has been compliant. Repeat imaging in the future for surveillance purposes. 6. Anemia: As per primary hospitalist team/PCP. Monitor for bleeding, especially while on anticoagulation therapy. 7. Disposition: Follow up with Dr. Villegas on discharge. HF program follow-up arranged. Pt care communicated with Dr. Jha of the primary hospitalist service. Admission and Anticipated Discharge Date Admission Date: August 05, 2022 Subjective She was seen this afternoon. She feels back to baseline. She denies chest pain, shortness of breath, syncope, near syncope, palpitations, edema, or bleeding. She would like to be discharged today. She met with Fabiola Mesa of the heart failure program. She was alone in her hospital room. Physical Exam Physical Exam: Gen.: No acute distress. Alert and oriented. HEENT: Anicteric sclera. Neck: No appreciable JVD. Cardiac: No ventricular heave. Irregularly irregular. Normal rate. Normal S1-S2. No murmurs, rubs, or gallops. Pulmonary: Clear to auscultation bilaterally. Abdomen: Soft, nontender, nondistended, with normoactive bowel sounds. No bruits noted. Extremities: 2+ radial pulses bilaterally. 2+ posterior tibialis pulses bilaterally. No edema or cyanosis. Psychiatric: Affect appears appropriate. Results & Data Vital Signs (Past 12 Hours) Vital Signs Temp Pulse Resp BP BP Pulse Ox O2 Del Method 08/06/22 11:28 36.9 C 80 18 114/73 94 Room Air 08/06/22 07:27 36.9 C 60 18 148/79 H 96 Room Air 08/06/22 03:37 36.8 C 73 16 126/71 94 Room Air Intake & Output 08/04/22 08/05/22 08/06/22 08/07/22 06:59 06:59 06:59 06:59 Intake Total 150 / 150 Output Total 975 / 975 100 / 100 Balance -825 / -825 -100 / -100 Weight 189 lb 9.561 oz 176 lb 9.444 oz Laboratory Results Laboratory Results - last 24 hr 08/05/22 08/05/22 08/06/22 14:34 20:28 02:46 WBC RBC Hgb Hct MCV MCH MCHC RDW Std Deviation RDW Coeff of Mellisa Plt Count MPV Immature Gran % (Auto) Neut % (Auto) Lymph % (Auto) Person % (Auto) Eos % (Auto) Baso % (Auto) Neut # (Auto) Lymph # (Auto) Person # (Auto) Eos # (Auto) Baso # (Auto) Immature Gran # (Auto) PT INR APTT PTT Ratio Sodium Potassium Chloride Carbon Dioxide Anion Gap BUN Creatinine Est Cr Clr Drug Dosing Est GFR ( Amer) Est GFR (Non-Af Amer) BUN/Creatinine Ratio Glucose Calcium Phosphorus Magnesium Troponin I High Sens 7.9 8.1 8.3 Albumin 08/06/22 08/06/22 08/06/22 02:46 02:46 02:46 WBC 4.56 L RBC 3.80 L Hgb 10.1 L Hct 32.7 L MCV 86.1 MCH 26.6 MCHC 30.9 L RDW Std Deviation 44.8 RDW Coeff of Mellisa 14.3 Plt Count 199 MPV 10.1 Immature Gran % (Auto) 0.2 Neut % (Auto) 48.0 Lymph % (Auto) 37.3 Person % (Auto) 11.0 Eos % (Auto) 2.0 Baso % (Auto) 1.5 Neut # (Auto) 2.19 Lymph # (Auto) 1.70 Person # (Auto) 0.50 Eos # (Auto) 0.09 Baso # (Auto) 0.07 Immature Gran # (Auto) 0.01 PT 16.7 H INR 1.6 H APTT 37.1 H PTT Ratio 1.3 Sodium 140 Potassium 3.6 Chloride 105 Carbon Dioxide 31 Anion Gap 4 BUN 18 Creatinine 0.91 Est Cr Clr Drug Dosing 44.6 Est GFR ( Amer) 64.8 Est GFR (Non-Af Amer) 55.9 BUN/Creatinine Ratio 19.8 Glucose 91 Calcium 8.9 Phosphorus 3.0 Magnesium 2.0 Troponin I High Sens Albumin 3.7 Diagnostic Findings Telemetry personally reviewed: Atrial fibrillation with reasonably controlled heart rate. Labs reviewed from 08/06/2022 and notable for anemia, stable renal function, normal potassium. ECG personally reviewed 08/06/2022: A-fib 68 bpm. Nonspecific T wave abnormality. Medications Administered Current Inpatient Medications Acetaminophen (Acetaminophen 325 Mg Tab) 650 mg PO Q4H PRN PRN Reason: Pain or Fever Stop: 09/04/22 08:13 Last Admin: 08/05/22 21:07 Dose: 650 mg Amlodipine Besylate (Amlodipine Besylate 5 Mg Tab) 5 mg PO DAILY [facility] Stop: 09/04/22 08:59 Last Admin: 08/06/22 08:24 Dose: 5 mg Aspirin (Aspirin 81 Mg Ectab) 81 mg PO QAM [facility] Stop: 09/05/22 08:59 Last Admin: 08/06/22 08:24 Dose: 81 mg Furosemide (Furosemide 20 Mg Tab) 20 mg PO QAM [facility] Stop: 09/06/22 08:59 Metoprolol Tartrate (Metoprolol Tartrate 100 Mg Tab) 100 mg PO BID [facility] Stop: 09/04/22 08:59 Last Admin: 08/06/22 08:24 Dose: 100 mg Multivitamins/Minerals (Cerovite Adv Formula Tab) 2 tab PO QAM [facility] Stop: 09/04/22 08:59 Last Admin: 08/06/22 08:24 Dose: 2 tab Nitroglycerin (Nitroglycerin Sl 0.4 Mg/Tab Tab) 0.4 mg SL PRN PRN PRN Reason: Chest Pain Stop: 09/04/22 08:13 Ondansetron HCl (Ondansetron Inj 2 Mg/Ml 2 Ml Vial) 4 mg IV Q6H PRN PRN Reason: Nausea Stop: 09/04/22 08:13 Pantoprazole Sodium (Pantoprazole 40 Mg Tab) 40 mg PO QAM [facility] Stop: 09/04/22 08:59 Last Admin: 08/06/22 08:24 Dose: 40 mg Rivaroxaban (Rivaroxaban 20 Mg Tab) 20 mg PO QDD [facility] Stop: 09/04/22 16:29 Last Admin: 08/05/22 16:55 Dose: 20 mg Simvastatin (Simvastatin 40 Mg Tab) 40 mg PO QPM [facility] Stop: 09/04/22 20:59 Last Admin: 08/05/22 20:14 Dose: 40 mg Vitamin D (Cholecalciferol 1,000 Units 25 Mcg Tab) 1,000 units PO QAM [facility] Stop: 09/04/22 08:59 Last Admin: 08/06/22 08:24 Dose: 1,000 units PG Care Time/CCT Total # of Minutes Spent Total Time Spent with Patient: Total time spent is greater than 50% in coordination of care (as documented) at patient's floor/unit and/or counseling patient: Coding Level of Care Code 33404 SUB INP/OBS CARE 2/35MIN Diagnoses Acute heart failure with preserved ejection fraction (HFpEF) I50.31 Chest pain R07.9 Atrial fibrillation, permanent I48.21 Mitral regurgitation I34.0 Pulmonary hypertension I27.20 Anemia D64.9
--- NOTE | 2022-08-06 13:36 | Discharge Summary ---
Discharge Summary Date of Service August 06, 2022 Notes For Next Care Provider Continue home Lasix 20 mg daily with as needed 20 mg dosing for weight gain greater than 3 pounds, follow-up with CHF clinic No evidence of ACS on evaluation this admission Admission Exam Per Admitting Provider The patient is awake, alert and oriented 3, well developed and well nourished, normocephalic and atraumatic, lying in bed and in no acute distress. HEENT--PERRL, EOMI, mucous membranes and oropharynx dry. Neck--supple. No JVD. No bruits. Thyroid normal, trachea midline, no adenopathy. Heart--irregularly irregular. No murmurs, rubs or gallops. Lungs--crackles at the bases bilaterally. No respiratory distress, no accessory muscle use. Abdomen--normal bowel sounds and soft. Nontender. Nondistended, no hernias or masses, no organomegaly. Extremities--no cyanosis or clubbing. Trace to 1+ bilateral pretibial pitting edema Dermatologic--normal skin turgor, normal color, no abnormal lymph nodes, no rash. Neurologic--cranial nerves II through XII grossly intact. Rheumatologic--normal range of motion. Psychiatric--normal affect. Principal Dx & Hospital Course #1 = Principal Diagnosis (1) Acute heart failure with preserved ejection fraction (HFpEF): Presented with chest pain and shortness of breath, with evidence of fluid overlo ad. Started on IV Lasix which was today transitioned to her home oral dosing, had good diuresis with IV dosing. Patient was evaluated by cardiology and recommended to return to her home dosing with a as needed dose as needed for weight gain, with follow-up with CHF clinic next week. Discussion had about dietary modification for low-sodium diet. (2) Chest pain: No evidence of ACS on troponins/EKG, was put on Nitropaste for hypertension and chest pain but this was discontinued without return of chest pain. (3) Hypercholesterolemia: chronic and stable continue simvastatin (4) Hypertension: chronic and stable Resume home medications amlodipine, metoprolol, HCTZ, home low-dose Lasix with follow-up of renal function with PCP (5) Atrial fibrillation: Permanent Continue beta-fabio for rate control Continue Rivaroxaban Discharge Exam Constitutional WD/WN, vitals as above Respiratory normal respiratory effort, lungs clear to auscultation Cardiovascular RRR, no murmur, no edema Psychiatric A+Ox3, euthymic affect Updated Medication List Medication Instructions Recorded Confirmed Type cholecalciferol (vitamin D3) 25 1,000 units PO QAM 01/31/19 08/04/22 History mcg (1,000 unit) capsule potassium 99 mg tablet mg PO DAILY 05/29/19 08/04/22 History vitamins A,C,[id number] 4,296 2 cap PO QAM 02/26/20 08/04/22 History mcg-226 mg-90 mg capsule (PreserVision AREDS) hydrochlorothiazide 25 mg tablet 25 mg PO QAM #90 tabs 12/24/21 08/04/22 Rx omeprazole 20 mg capsule,delayed 20 mg PO QAM #90 caps 12/24/21 08/04/22 Rx release simvastatin 20 mg tablet 20 mg PO QPM #90 tabs 01/05/22 08/04/22 Rx amlodipine 5 mg tablet 5 mg PO DAILY #90 tabs 02/13/22 08/04/22 Rx rivaroxaban 20 mg tablet (Xarelto) 20 mg PO QPM #90 tabs 03/31/22 08/04/22 Rx metoprolol tartrate 100 mg tablet 100 mg PO BID #180 tabs 05/06/22 08/04/22 Rx furosemide 20 mg tablet 20 mg PO DAILY #20 tabs 08/04/22 08/04/22 Rx furosemide 20 mg tablet 20 mg PO DAILY PRN edema #30 tabs 08/06/22 Rx Hospital Stay Data Consultations 08/05/22 05:49 ED Decision to Admit Stat 08/05/22 07:53 Consult Cardiology Routine 08/05/22 14:01 [facility] CHF Program Referral Routine Pending Results Patient Have Any Pending Studies at Discharge: No Discharge Instructions Given to Patient (Per Discharging Provider) You were admitted for evaluation of chest pain and fluid overload. You were not found to be having a heart attack. You were given IV diuretic medication, with improvement in your breathing. You were transitioned back to your home Lasix dose. Please see the heart failure instructions below. If you have concerns or questions, please call your family doc or Fabiola Mesa with the heart failure clinic. If urgent concerns for your safety or medical care, seek medical attention immediately. Total Time Total Time Spent Total Time Spent (In Minutes): 35 minutes Coding Level of Care Code 69972 INP/OBS DISCH >30 MIN Diagnoses Acute heart failure with preserved ejection fraction (HFpEF) I50.31 Chest pain R07.9 Hypercholesterolemia E78.00 Hypertension I10 Atrial fibrillation I48.91
[2022-08-06] MEDS: RIVAROXABAN 20 MG TAB PO SCH (16:32)
--- NOTE | 2022-08-07 05:37 | Electrocardiogram Report ---
Test Reason : Blood Pressure : / mmHG Vent. Rate : 068 BPM Atrial Rate : 068 BPM P-R Int : 000 ms QRS Dur : 086 ms QT Int : 424 ms P-R-T Axes : 000 -04 -20 degrees QTc Int : 450 ms Atrial fibrillation Nonspecific T wave abnormality Abnormal ECG When compared with ECG of 05-AUG-2022 04:38, No significant change Confirmed by Yuri Vinson ([id number]) on 08/07/2022 5:37:13 AM Referred By: REFERRED SELF Confirmed By:Yuri Vinson
[2022-08-07] MEDS ORDERED: FUROSEMIDE 20 MG TAB PO SCH (09:00)
== END 2022-08-06 16:49 | disposition home or self-care (01) | DRG 291 ==
LOC: ED 04:32 → SUATTDRO 06:19 → 2S 06:19